=== PATIENT | female | born 1975 | race Two or more races ===

== ENCOUNTER 2019-06-05 20:03 | Emergency (ER) | payer OTHER ==
[~2019-06-05] VITALS: Ht 160 cm; Wt 78.9 kg
--- NOTE | 2019-06-05 20:15 | PHYS DOC ---
Past History Past Medical History: Constipation, GERD, IBS Adult General Chief Complaint Chief Complaint: ABDOMINAL PAIN.. ..".. I ve always had some stomach problems however lately it has been worse. Has had hiatal hernia, irritable bowel, and constipation issues however and the pain tonight is really severe... It's appear in my stomach and right upper abdomen" HPI HPI Patient is a 44 year old female dependent who presents with above hx and complaints of abdomen pain. Patient currently rates her pain as 10 out of 10 in epigastric and right upper quadrant. There is some radiation to right posterior shoulder blade area. Patient states pain became very severe after eating a spicy hamburger. This is same food that other family members ate without ill effects. Patient does have a history of irritable bowel syndrome, gastritis, GERD, and episodes of constipation. Patient has had nausea and vomiting. No dark or tarry stools. No recent travel or specific ill contacts. There is some family history of stomach cancer, gall stones with grandmother and ovarian cancer with an aunt. Patient normally follows at [facility]. Patient has no history immunosuppression. Review of Systems Review of Systems Constitutional: Denies fever or chills [] Eyes: Denies change in visual acuity, redness, or eye pain [] HENT: Denies nasal congestion or sore throat [] Respiratory: Denies cough or shortness of breath [] Cardiovascular: No additional information not addressed in HPI [] GI: Complaints of abdominal pain, nausea, vomiting,. Patient denies Bloody stools or diarrhea [] : Denies dysuria or hematuria [] Musculoskeletal: Denies back pain or joint pain [] Integument: Denies rash or skin lesions [] Neurologic: Denies headache, focal weakness or sensory changes [] Endocrine: Denies polyuria or polydipsia [] All other systems were reviewed and found to be within normal limits, except as documented in this note. Family History Family History Grandmother stomach cancer and aunt with ovarian cancer Current Medications Current Medications See nursing for home meds Allergies Allergies Allergies Coded Allergies Type Severity Reaction Last Updated Verified metronidazole Allergy Mild VOMITING 06/05/19 Yes Physical Exam Physical Exam Constitutional: in acute distress,ill in appearance. [] HENT: Normocephalic, atraumatic, bilateral external ears normal, oropharynx moist, no oral exudates, nose normal. [] Eyes: PERRLA, EOMI, conjunctiva normal, no discharge. [] Neck: Normal range of motion, no tenderness, supple, no stridor. [] Cardiovascular: bradycardia Heart rate regular rhythm, no murmur [] Lungs & Thorax: Bilateral breath sounds with apex on auscultation [] Abdomen: Bowel sounds decrease,, soft, no epigastric and right upper quadrant te nderness, no masses, no pulsatile masses. [] Rebound to right upper quadrant. Skin: Warm, diaphoretic,, no erythema, no rash. [] Back: No tenderness, no CVA tenderness. [] Extremities: No tenderness, no cyanosis, no clubbing, ROM intact, no edema. [] No true psoas sign on right Neurologic: Alert and oriented X 3, normal motor function, normal sensory function, no focal deficits noted. [] Psychologic: Affect anxious, judgement normal, mood tearful. EKG EKG My interpretation EKG shows a sinus bradycardia at 57 bpm does have an incomplete right bundle block.. No findings of acute STEMI with contralateral changes.[] Radiology/Procedures Radiology/Procedures [][place] [address] IMAGING REPORT Signed PATIENT: ANUJ SUÁREZ ACCOUNT: [id number] : 1975 LOCATION: ER AGE: 44 SEX: F EXAM STATUS: REG ER ORD. PHYSICIAN: PHYLLIS OCONNOR MD REASON: pain, N/V, X A FEW HOURS, H/O GERD, HERNIAS, CONSTIPATION PROCEDURE: CT ABD PELV W/ORAL&IV CONTRAST CT abdomen and pelvis with contrast PQRS statement: CT scans at this facility use dose reduction including either automated exposure control, iterative reconstructions, and /or weight based radiation dosing via mA and kV modification when appropriate to reduce radiation dose to as low as reasonably achievable. HISTORY: Abdominal pain, nausea, vomiting. TECHNIQUE: 75 mL Omnipaque 300 intravenous contrast. Abdomen findings: Lung bases unremarkable. Disc bulges with spinal canal stenoses L4-5 and L5-S1. Focal fat left hepatic lobe adjacent to falciform ligament. There may be mild hypodense edema surrounding the gallbladder at the gallbladder fossa. Heterogeneous intraluminal density of the gallbladder could be sludge or stones. Mild distention of the gallbladder. Liver, kidneys, adrenal glands, pancreas and spleen are unremarkable. No bowel obstruction or inflammatory change. The appendix is negative arising medial the cecum on the coronal images. No abdominal fluid or adenopathy. Pelvis findings: 1 cm left ovarian hypodensity most likely a small follicle. Numerous uterine masses of the retroverted uterus likely leiomyomas. One of these masses is protruding towards the left adnexa. Bladder, rectum and bones are unremarkable. IMPRESSION: 1. Distention of the gallbladder, intraluminal density representing sludge or possibly small stones, and possible mild pericholecystic edema, raising the possibility of cholecystitis. This could be further assessed with abdominal sonography. 2. Globular retroverted uterus with numerous masses most likely leiomyomas one of which is mildly exophytic towards the left adnexa. This could be further assessed with outpatient pelvic sonography. Electronically signed by: Jessica Soriano MD (06/05/2019 11:11 PM) [facility] DICTATED AND SIGNED BY: JESSICA SORIANO MD DATE: 06/05/192310 CC: PHYLLIS OCONNOR MD; PCP,UNKNOWN ~ IMAGING REPORT Signed PATIENT: ANUJ SUÁREZ ACCOUNT: [id number] : 1975 LOCATION: ER AGE: 44 SEX: F EXAM STATUS: REG ER ORD. PHYSICIAN: PHYLLIS OCONNOR MD REASON: pain, N/V, X A FEW HOURS, H/O GERD, HERNIAS, CONSTIPATION PROCEDURE: ACUTE ABDOMEN SERIES EXAM: 2 VIEW ABDOMEN WITH ONE VIEW CHEST. HISTORY: Pain, nausea/vomiting, constipation. COMPARISON: None. FINDINGS: A frontal view of the chest and supine/upright views of the abdomen are obtained. There are no confluent infiltrates. There is no pneumothorax or pleural effusion. The heart is not enlarged. There is no pneumoperitoneum. There are no distended small bowel loops or significant air-fluid levels. There is gas distally. Small bone islands are suspected within the left iliac wing. IMPRESSION: 1. No confluent infiltrates. 2. No evidence of obstruction. Electronically signed by: Tavia Quintanilla MD (06/05/2019 10:35 PM) [facility] DICTATED AND SIGNED BY: CRISTAL QUINTANILLA MD DATE: 06/05/19 3074 CC: PHYLLIS OCONNOR MD; PCP,UNKNOWN ~ Course & Med Decision Making Course & Med Decision Making Pertinent Labs and Imaging studies reviewed. (See chart for details) Discussed presentation, testing and tx plan with Dr. Wellington. Transfer to [facility] for Surgery consult. Discussed presentation, testing and tx plan with Dr. Mcdowell- will consult on pt. in AM. Impression 1. Abdomen pain- epigastric and right upper quadrant 2. Biliary [id number] sludge and stones 3. Leukocytosis 12. 2 4. Elevated Amylase 132 5. Retroverted Uterus- with numerous masses - suspect Leiomyomas 6. Lactic Acid 1.8 [] Dragon Disclaimer Dragon Disclaimer This electronic medical record was generated, in whole or in part, using a voice recognition dictation system. Departure Departure: Disposition: 01 HOME/RESIDENCE PRIOR TO ADM Condition: STABLE Referrals: PCP,UNKNOWN (PCP) Dragon Disclaimer This chart was dictated in whole or in part using Voice Recognition software in a busy, high-work load, and often noisy Emergency Department environment. It may contain unintended and wholly unrecognized errors or omissions. Dragon Disclaimer This chart was dictated in whole or in part using Voice Recognition software in a busy, high-work load, and often noisy Emergency Department environment. It may contain unintended and wholly unrecognized errors or omissions. PHYLLIS OCONNOR MD Jun 05, 2019 20:15
[2019-06-05] MEDS ORDERED: IV RINGERS SOLUTION,LACTATED 1,000 ML IV SCH (20:23)
[2019-06-05] MEDS ORDERED: MAGNESIUM HYDROXIDE 2,400 MG/30 ML ORAL.SUSP. PO ONE (20:30)
[2019-06-05] MEDS ORDERED: IOHEXOL 300 MG/ML 75 ML VIAL. IV ONE (20:30)
[2019-06-05] MEDS ORDERED: IOHEXOL 240 MG/ML 50ML VIAL. PO ONE (20:30)
[2019-06-05] MEDS ORDERED: ONDANSETRON PF 4 MG/2 ML VIAL. IVP ONE (20:30)
[2019-06-05] MEDS ORDERED: MORPHINE SULFATE 10 MG/ML SYRINGE. SQ ONE (20:30)
[2019-06-05] MEDS ORDERED: FAMOTIDINE 20 MG/2 ML VIAL IVP ONE (20:30)
[2019-06-05 20:43] LABS: BASO # 0.1 x10^3/uL (0.0-0.2); BASO % 1 % (0-3); EOS # 0.2 x10^3/uL (0.0-0.7); EOS % 2 % (0-3); HEMATOCRIT 45.9 % (36.0-47.0); HEMOGLOBIN 15.4 g/dL (12.0-15.5); LYMPH # 2.5 x10^3/uL (1.0-4.8); LYMPH % 21 % (24-48); MEAN CORPUSCULAR HEMOGLOBIN 30 pg (25-35); MEAN CORPUSCULAR HGB CONC 34 g/dL (31-37); MEAN CORPUSCULAR VOLUME 89 fL (79-100); MONO # 0.8 x10^3/uL (0.0-1.1); MONO % 6 % (0-9); NEUT # 8.6 x10^3uL (1.8-7.7); NEUT % 71 % (31-73); PLATELET COUNT 398 x10^3/uL (140-400); RED BLOOD COUNT 5.14 x10^6/uL (3.50-5.40); RED CELL DISTRIBUTION WIDTH 13.6 % (11.5-14.5); WHITE BLOOD COUNT 12.2 x10^3/uL (4.0-11.0)
[2019-06-05] MEDS ORDERED: CONTRAST GIVEN MC PRN (20:45)
[2019-06-05 20:53] LABS: CALCIUM 9.5 mg/dL (8.5-10.1); GFR 60.5; POTASSIUM 4.1 mmol/L (3.5-5.1)
[2019-06-05 20:59] LABS: ALBUMIN 3.9 g/dL (3.4-5.0); DIRECT BILIRUBIN 0.2 mg/dL (0.0-0.2); TOTAL BILIRUBIN 0.6 mg/dL (0.2-1.0); TOTAL PROTEIN 7.6 g/dL (6.4-8.2)
[2019-06-05 21:41] LABS: AMPHETAMINE/METHAMPHETAMINE NEG (NEG); BARBITURATES NEG (NEG); BENZODIAZEPINES NEG (NEG); CANNABINOIDS NEG (NEG); COCAINE NEG (NEG); METHADONE NEG (NEG); OPIATES POS (NEG); PHENCYCLIDINE NEG (NEG)
[2019-06-05 21:45] LABS: BACTERIA,URINE FEW /HPF (0-FEW); BILIRUBIN,URINE NEG (NEG); CLARITY,URINE HAZY; COLOR,URINE YELLOW; GLUCOSE,URINE NEG (NEG); NITRITE,URINE NEG (NEG); SQUAMOUS EPITHELIAL CELL,UR OCC /LPF; UROBILINOGEN,URINE 0.2 mg/dL (0.2 mg/dL)
--- NOTE | 2019-06-05 21:45 | EKG ---
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
--- NOTE | 2019-06-05 22:38 | RAD ---
EXAM: 2 VIEW ABDOMEN WITH ONE VIEW CHEST. HISTORY: Pain, nausea/vomiting, constipation. COMPARISON: None. FINDINGS: A frontal view of the chest and supine/upright views of the abdomen are obtained. There are no confluent infiltrates. There is no pneumothorax or pleural effusion. The heart is not enlarged. There is no pneumoperitoneum. There are no distended small bowel loops or significant air-fluid levels. There is gas distally. Small bone islands are suspected within the left iliac wing. IMPRESSION: 1. No confluent infiltrates. 2. No evidence of obstruction. Electronically signed by: Tavia Quintanilla MD (06/05/2019 10:35 PM) [facility]
[2019-06-05 23:14] VITALS: BP 122/68
--- NOTE | 2019-06-05 23:14 | RAD ---
CT abdomen and pelvis with contrast PQRS statement: CT scans at this facility use dose reduction including either automated exposure control, iterative reconstructions, and /or weight based radiation dosing via mA and kV modification when appropriate to reduce radiation dose to as low as reasonably achievable. HISTORY: Abdominal pain, nausea, vomiting. TECHNIQUE: 75 mL Omnipaque 300 intravenous contrast. Abdomen findings: Lung bases unremarkable. Disc bulges with spinal canal stenoses L4-5 and L5-S1. Focal fat left hepatic lobe adjacent to falciform ligament. There may be mild hypodense edema surrounding the gallbladder at the gallbladder fossa. Heterogeneous intraluminal density of the gallbladder could be sludge or stones. Mild distention of the gallbladder. Liver, kidneys, adrenal glands, pancreas and spleen are unremarkable. No bowel obstruction or inflammatory change. The appendix is negative arising medial the cecum on the coronal images. No abdominal fluid or adenopathy. Pelvis findings: 1 cm left ovarian hypodensity most likely a small follicle. Numerous uterine masses of the retroverted uterus likely leiomyomas. One of these masses is protruding towards the left adnexa. Bladder, rectum and bones are unremarkable. IMPRESSION: 1. Distention of the gallbladder, intraluminal density representing sludge or possibly small stones, and possible mild pericholecystic edema, raising the possibility of cholecystitis. This could be further assessed with abdominal sonography. 2. Globular retroverted uterus with numerous masses most likely leiomyomas one of which is mildly exophytic towards the left adnexa. This could be further assessed with outpatient pelvic sonography. Electronically signed by: Blair Soriano MD (06/05/2019 11:11 PM) [facility]
[2019-06-05] MEDS ORDERED: cefTRIAXone SODIUM 1 GM VIAL ONE (23:40)
[2019-06-05] MEDS ORDERED: IV NORMAL SALINE 50ML 50 ML ONE (23:40)
[2019-06-05] MEDS ORDERED: CLINDAMYCIN 900MG PREMIX 50 ML IV ONE (23:45)
[2019-06-06] MEDS ORDERED: MORPHINE SULFATE 10 MG/ML SYRINGE. SQ ONE (00:30)
== END 2019-06-06 00:25 | disposition short-term general hospital (02) ==
LOC: ER 20:03
DX: K80.40 Calculus of bile duct with cholecystitis, unspecified, without obstruction (principal); D72.829 Elevated white blood cell count, unspecified; R94.8 Abnormal results of function studies of other organs and systems; N85.4 Malposition of uterus; R11.2 Nausea with vomiting, unspecified; K21.9 Gastro-esophageal reflux disease without esophagitis; K58.9 Irritable bowel syndrome, unspecified; Z88.8 Allergy status to other drugs, medicaments and biological substances
CPT/HCPCS: 36415; 74022; 74177; 80048; 80076; 80307; 81001; 81025; 82150; 82550; 83605; 83690; 84484; 85025; 85610; 85730; 93005; 96361; 96365; 96372; 96375; 99285; J0696; J2270; J2405; J3490; J7120; Q9966; Q9967